=== PATIENT | male | born 1995 | race Caucasian/White ===

== ENCOUNTER 2019-05-10 18:29 | Emergency (ER) | payer BC ==
[~2019-05-10] VITALS: Ht 172.7 cm; Wt 61.2 kg
[2019-05-10 18:30] VITALS: BP 130/90
--- NOTE | 2019-05-10 18:31 | NUR ---
ED Nurse Note: Pt referred by Dr Brink, walked in due to Dry cough with sore throat that has been on and off for days. Pt also c/o chest heaviness and SOB with diarrhea that started last night. Reports recent travel from [place] 2 weeks ago. AAO x4, ambulatory with non labored breathing. Mask provided to patient.
[2019-05-10] MEDS ORDERED: ALBUTEROL SULF8.5 GM INH (18:53)
--- NOTE | 2019-05-10 18:54 | Emergency Room Report ---
History of Present Illness General Chief Complaint: Flu Like Symptoms Source: Patient Present Illness HPI 23-year-old male presents with a few days of cough, congestion chest tightness no aggravating relieving factors severity is moderate, constant, patient recently came from [place] he also endorses some fevers and chills patient comes for evaluation for CO VID testing Allergies: Coded Allergies: PENICILLINS (Verified Allergy, Unknown, 05/10/19) COVID-19 Screening Contact w/high risk pt: No Recent Travel to affected area: No Experienced COVID-19 symptoms?: Yes COVID-19 symptoms experienced: Shortness of Breath, Cough Patient History Past Medical History: see triage record Reviewed Nursing Documentation: PMH: Agreed; PSxH: Agreed Nursing Documentation-PMH Past Medical History: No History, Except For Review of Systems All Other Systems: negative except mentioned in HPI Physical Exam Vital Signs Date Time Temp Pulse Resp B/P (MAP) Pulse Ox O2 Delivery O2 Flow Rate FiO2 05/10/19 18:25 98.4 97 18 130/90 (103) 98 Room Air Sp02 EP Interpretation: reviewed, normal General Appearance: well appearing, no apparent distress, alert Head: normocephalic, atraumatic Eyes: bilateral eye PERRL, bilateral eye EOMI ENT: uvula midline, moist mucus membranes Neck: supple, thyroid normal, supple/symm/no masses Respiratory: lungs clear, no respiratory distress, no retraction, no accessory muscle use Cardiovascular #1: normal peripheral pulses, regular rate, rhythm, no edema, no gallop, no murmur Gastrointestinal: non tender, soft, no guarding, no rebound Musculoskeletal: normal inspection Neurologic: alert, oriented x3 Psychiatric: mood/affect normal Skin: no rash, warm/dry Medical Decision Making Diagnostic Impression: Primary Impression: COVID-19 ER Course 23-year-old male presents with cough, congestion, consolation of symptoms consistent with CO VID, patient counseled To socially isolate for 14 days, as well as his family No evidence of respiratory distress disposition home with return precautions no hypoxia follow-up with PCP Last Vital Signs Date Time Temp Pulse Resp B/P (MAP) Pulse Ox O2 Delivery O2 Flow Rate FiO2 05/10/19 18:30 98.4 97 18 130/90 98 Room Air Disposition: HOME, SELF-CARE Condition: Stable Scripts Albuterol Sulfate* (ALBUTEROL SULFATE MDI*) 8.5 Gm Hfa.aer.ad 2 PUFF INH Q4H PRN for Shortness of Breath, #1 EA 0 Refills Prov: Manjeet Leblanc MD 05/10/19 Referrals: Eligio Brink MD Patient Instructions: Upper Respiratory Infection, Adult, [id number] Additional Instructions: The patient was provided with discharge instructions, notified to follow-up with a primary care doctor and or specialist in the next 24-48 hours, and to return to the ED if they have worsening of their symptoms. Please note that this report is being documented using [employer] technology. This can lead to erroneous entry secondary to incorrect interpretation by the dictating instrument. Please self isolate for 14 days until symptoms resolve. Please practice social isolation. Strongly recommend proper hand hygiene. YOU HAVE COVID AND YOU NEED TO ISOLATE. Manjeet Leblanc MD May 10, 2019 18:54
--- NOTE | 2019-05-10 18:58 | NUR ---
ED Nurse Note: Covid19 swab sent to lab.
[2019-05-10 19:00] VITALS: BP 127/88
--- NOTE | 2019-05-10 19:00 | NUR ---
ER DISCHARGE NOTE: Patient is cleared to be discharged per ERMD, pt is aox4, on room air, with stable vital signs. pt was given dc and prescription instructions, pt was able to verbalize understanding, pt id band removed without complications. pt is able to ambulate with steady gait. pt took all belongings.
== END 2019-05-10 19:00 | disposition home or self-care (01) ==
LOC: EDBD 18:29 → EMR 18:50
DX: R05 Cough (principal); R06.02 Shortness of breath; Z88.0 Allergy status to penicillin
CPT/HCPCS: 99282; U0002; 87635